=== PATIENT | male | born 1970 | race Hispanic/Latino ===

== ENCOUNTER → 2016-08-13 | Outpatient (CLI) | payer OTHER | LOC: MOB LAB 10:52 | PROVIDERS: ATTEND Nurse Practitioner Family | DX: E29.1 Testicular hypofunction (principal); N52.9 Male erectile dysfunction, unspecified | CPT/HCPCS: 36415; 84403 ==

== ENCOUNTER → 2016-08-28 | Outpatient (CLI) | payer OTHER ==
--- NOTE | 2016-08-28 10:17 | DI ---
US SCROTUM,08/28/2016 9:07 AM: Clinical History: Lump in the scrotum. Previous Exam: None at this facility. Findings: Multiple grayscale and color Doppler sonographic images are obtained through the scrotum, and demonst rate a small right hydrocele. There is also a small left hydrocele. There is normal, homogeneous test icular echotexture. There is normal venous and arterial Doppler flow. There is no intratesticular mas s. There is no scrotal thickening. Impression: Small bilateral hydroceles otherwise unremarkable.
== END ==
LOC: US 09:03
PROVIDERS: ATTEND Nurse Practitioner Family
DX: N50.9 Disorder of male genital organs, unspecified (principal); N43.3 Hydrocele, unspecified
CPT/HCPCS: 76870

== ENCOUNTER → 2016-09-09 | Outpatient (CLI) | payer OTHER ==
--- NOTE | 2016-09-09 11:18 | DI ---
XR TIB/FIB 2VW,09/09/2016 9:54 AM: Clinical History: Left fibular fracture Previous Exam: May 09, 2010 Findings: AP and lateral views of the left tibia and fibula are obtained, and demonstrate a healing left mid fi bular fracture. The surrounding soft tissues are unremarkable. Impression: Healing left mid fibular fracture.
== END ==
LOC: ORTHO 10:03
PROVIDERS: ATTEND Orthopaedic Surgery
DX: M25.572 Pain in left ankle and joints of left foot (principal); S82.492D Other fracture of shaft of left fibula, subsequent encounter for closed fracture with routine healing
CPT/HCPCS: 73590

== ENCOUNTER → 2016-09-09 | Outpatient (CLI) | payer OTHER ==
--- NOTE | 2016-09-09 10:50 | DI ---
XR HAND MIN 3VW,09/09/2016 9:43 AM: Clinical History: Right hand pain Previous Exam: None at this facility. Findings: 3 views of the right hand are obtained, and demonstrate anatomic alignment without fractures. The brenden rounding soft tissues are unremarkable. Impression: Normal right hand.
--- NOTE | 2016-09-09 11:18 | DI ---
XR ELBOW COMPLETE MIN 3VW,09/09/2016 9:43 AM: Clinical History: Left elbow pain Previous Exam: None at this facility. Findings: 3 views of left elbow are obtained, and demonstrate a small avulsion fracture involving the medial rankin rface of the ulna near the medial ulnar groove. There is no evidence of elbow joint effusion. Impression: Avulsion fracture involving the medial rim of the ulnar notch
== END ==
LOC: ORTHO 10:01
PROVIDERS: ATTEND Orthopaedic Surgery
DX: M25.522 Pain in left elbow (principal); M77.12 Lateral epicondylitis, left elbow; S52.692A Other fracture of lower end of left ulna, initial encounter for closed fracture; M79.641 Pain in right hand; M67.441 Ganglion, right hand
CPT/HCPCS: 73080; 73130

== ENCOUNTER 2016-10-29 17:46 | Inpatient (IN) | payer OTHER ==
[2016-10-29] MEDS ORDERED: NORMAL SALINE 10 ML SYRINGE FLUSH IVP PRN ×3 (18:11→20:40)
[2016-10-29] MEDS ORDERED: Sodium Chloride 0.9% 1,000 ML PRIMARY IV ONE (18:11)
[2016-10-29 18:18] LABS: BASOPHILS # (AUTO) 0.01 10*3/UL; BASOPHILS % (AUTO) 0.1 % (0-1); EOSINOPHILS # (AUTO) 0.21 10*3/UL; EOSINOPHILS % (AUTO) 1.7 % (0-8); HEMOGLOBIN 15.3 g/dL (14.0-18.0); LYMPHOCYTES # (AUTO) 1.45 10*3/uL; MEAN CORPUSCULAR HEMOGLOBIN 31.5 PG (27-31); MEAN CORPUSCULAR VOLUME 92.8 FL (80-90); MEAN PLATELET VOLUME 9.3 FL (7.4-12.2); MONOCYTES # (AUTO) 1.04 10*3/UL (0.3-0.8); MONOCYTES % (AUTO) 8.4 % (5-15); NEUTROPHILS # (AUTO) 9.58 10*3/UL; NEUTROPHILS % (AUTO) 77.7 % (50-80); RED BLOOD COUNT 4.85 10^6/uL (4.70-6.10)
[2016-10-29 18:25] LABS: PLATELET MORPHOLOGY COMMENT NORMAL MORPHOLOGY (NORM); RBC MORPHOLOGY COMMENT NORMAL MORPHOLOGY (NORM); WBC MORPHOLOGY COMMENT NORMAL MORPHOLOGY (NORM)
[2016-10-29 18:26] LABS: BLOOD UREA NITROGEN 15 mg/dL (7-22); BUN/CREATININE RATIO 16.66 (6-20); CALCIUM 9.1 mg/dL (8.7-10.7); EST GLOMERULAR FILTRATION > 60 (>60 ml/min/1.73m(2)); SERUM ALBUMIN 4.1 g/dL (3.5-4.8)
[2016-10-29 18:27] LABS: LIPASE 33 IU/L (23-300)
[2016-10-29 18:31] LABS: BILIRUBIN,URINE NEGATIVE (NEG); COLOR,URINE YELLOW; GLUCOSE, URINE (UA) NEGATIVE (NEG); NITRATE,URINE NEGATIVE (NEG); OCCULT BLOOD,URINE NEGATIVE (NEG); PROTEIN,URINE NEGATIVE (NEG)
[2016-10-29] MEDS ORDERED: MORPHINE SULFATE 4 MG/1 ML IVP ONE (18:49)
--- NOTE | 2016-10-29 19:03 | DI ---
CT ABDOMEN SCAN WITH IV CONTRAST, 10/29/2016 6:11 PM : Clinical History: Abdominal pain. Previous Exam: None at this facility. Scans are performed from the lower lung bases through the liver and kidneys with IV contrast. 75 ml o f Isovue 300 was injected IV. The lung bases are clear. The liver is normal. The gallbladder is grossly normal. There is no abnorma lity of the spleen, pancreas, and adrenal glands. Both kidneys are normal in size, shape, position an d contour. There is no hydronephrosis or hydroureter. No renal or ureteral calculi are present. There are no abnormal retrocrural or periaortic nodes. No ascites is present. READING: Normal CT abdomen scan. CT PELVIS SCAN WITH IV CONTRAST, 10/29/2016 6:11 PM: Clinical History: See above. Previous Exam: None at this facility. Scans are performed from just superior to the umbilicus to the symphysis pubis with IV contrast. This is the same bolus of contrast used for the CT scans of the abdomen. Scans through the lower abdomen and pelvis show no masses or abnormal fluid collections. There is no adenopathy. The appendix is normal. The small bowel, terminal ileum, and ileocecal valve are normal. Beginning at the junction between the descending colon and proximal sigmoid colon and extending to th e mid sigmoid colon are periserosal inflammatory/infiltrative change along with thickening of the bow el mucosa. There are diverticula present and there is some extraluminal bowel gas present indicating perforation of a diverticulum. A small amount of ascites is present in proximity to the inflamed segm ent of sigmoid colon. The rectosigmoid colon and rectum are normal. There are no hernias. READIN. There is acute diverticulitis in the proximal half of the sigmoid colon with a collection of extr aluminal bowel gas and fluid consistent with a very small abscess probably no more than 2-3 cm in dameon meter secondary to perforation of a diverticulum. There is also a small amount of ascites in proximit y to the focus of acute inflammation. 2. The remainder of the examination is normal.
[2016-10-29 19:04] LABS: CLARITY,URINE CLEAR (CLEAR); URINE SAMPLE TYPE CLEAN CATCH URINE
[2016-10-29] MEDS ORDERED: Ertapenem Inj 1 GM in Sodium Chloride 0.9% 100 ML IV ONE (19:19)
[2016-10-29] MEDS ORDERED: LIDOCAINE W/ SODIUM BICARB 0.5 ML SYR SUBD PRN (20:06)
[2016-10-29] MEDS ORDERED: MORPHINE SULFATE 2 MG/1 ML IVP PRN (20:06)
[2016-10-29] MEDS ORDERED: ONDANSETRON 4 MG/2 ML VIAL IVP PRN ×2 (20:06→20:40)
[2016-10-29] MEDS ORDERED: HYDROmorphone 2 MG/1 ML ONE (20:08)
[2016-10-29] MEDS ORDERED: 1/2NS + 20mEq KCL 1,000 ML PRIMARY IV SCH (20:15)
[2016-10-29] MEDS: HYDROmorphone 2 MG/1 ML IVP ONE ×2 (20:15→23:04)
--- NOTE | 2016-10-29 20:19 | PDOC ---
History and Physical - History of Present Illness Date and Time of Service: 10/29/2016 at 2010 Chief Complaint: Patient's been having abdominal pain History of Present Illness: 45-year-old gentleman is had a four-day history of a abdominal pain. He states , started as generalized abdominal pain is shifted to the left lower quadrant and pelvis. He states is having fevers at home but had not recorded 1 in the emergency department. Patient's been taking Advil no relief. His last normal bowel movement was today. No hematochezia hematemesis or melena. No nausea vomiting. He's never had pain quite like this before. Patient has an elevated white count 12.[address] scan shows acute inflammatory condition of the sigmoid colon. Is small amount of free air around the sigmoid colon with some fluid collection. May represent a small abscess 2-3 cm. Past Medical History Medical History: Hypercholesterolemia Tobacco Use: Never Smoker Substance Use Type: None Medication / Allergies Home Medications: Home Medications Medication Instructions Recorded Confirmed Type Multivitamin [Multi Vitamin Daily] 1 each PO QD tab 08/30/14 10/29/16 History [place]-3 Fatty Acids [Fish Oil] 1 cap PO QD cap 08/30/14 10/29/16 History Epinephrine [Epipen 2-Sandor] 0.3 ml IM ONCE #1 packet 08/27/16 10/29/16 Clinic Pravastatin Sodium [Pravachol] 1 tab PO DAILY #30 tab 08/27/16 10/29/16 Clinic Allergies/Adverse Reactions: Allergies Allergy/AdvReac Type Severity Reaction Status Date / Time Lactase [From Dairy Ease] Allergy Severe ANAPHLAXIS Verified 10/29/16 17:54 black walnut Allergy Unknown unknown Verified 10/29/16 17:54 rosuvastatin calcium AdvReac Intermediate NOT Verified 10/29/16 17:54 [From Crestor] APPLICABLE Review of Systems - Review of Systems -: Patient has visual hearing problems. No thyroid disease. He had high blood pressure with diet controlled. He has hypercholesterolemia. He says is a severe milk allergy. He has no nausea vomiting. No gastroesophageal reflux disease. Up until today had no problems with his bowels. He is still passing gas and had a bowel movement this morning. No endocrine problems. No coronary artery disease. No emphysema or asthma COPD. No problems the skin. No orthopedic problems. No psychologic problems. Otherwise unremarkable Exam - Vitals Vital Signs: Vital Signs Temperature 99.2 F Temperature Source Temporal Artery Scan Pulse Rate [Pulse Oximeter] 104 Respiratory Rate 17 Blood Pressure [Right Arm] 156/99 Pulse Ox 95 Oxygen Delivery Method Room Air Height 5 ft 7.5 in Weight 97.522 kg - General General Appearance: POSITIVE: No Acute Distress, Cooperative - Eye Eye Exam: POSITIVE: PERRL, EOMI - Neck Neck Exam: POSITIVE: Normal Inspection, Full ROM - Respiratory Respiratory Exam: POSITIVE: Clear to Auscultation - Bilaterally, Breathing Non Labored, Normal To Percussion - Cardiovascular Cardiovascular Exam: POSITIVE: RRR, No Murmur, No JVD - GI/Abdominal GI/Abdominal Exam: POSITIVE: Normal Bowel Sounds, Non Distended, Soft, No Hepatomegaly, No Splenomegaly Additional GI/Abdominal Exam Details: Patient has some left lower quadrant tenderness - Rectal Rectal Exam: POSITIVE: Deferred - External Exam: POSITIVE: Deferred - Extremities Extremities Exam: POSITIVE: Full ROM, No Clubbing Present, No Edema Present - Neurological Neurological Exam: POSITIVE: Alert, Oriented x 3, CN II-XII Intact Results - Labs CBC and BMP: 10/29/16 18:15 10/29/16 18:15 Labs - Last 24 Hours: Laboratory Results 10/29/16 Range/Units 18:15 WBC 12.33 H (4.8-10.8) 10^3/uL RBC 4.85 (4.70-6.10) 10^6/uL Hgb 15.3 (14.0-18.0) g/dL Hct 45.0 (42.0-52.0) % MCV 92.8 H (80-90) FL MCH 31.5 H (27-31) PG MCHC 34.0 (33-37) g/dL RDW Std Deviation 45.5 (39-50) fL RDW Coeff of Alee 13.7 (11.5-14.5) % Plt Count 212 (140-350) 10*3/uL MPV 9.3 (7.4-12.2) FL Immature Gran % (Auto) 0.3 (0-5) % Neut % (Auto) 77.7 (50-80) % Lymph % (Auto) 11.8 (10-50) % [place] % (Auto) 8.4 (5-15) % Eos % (Auto) 1.7 (0-8) % Baso % (Auto) 0.1 (0-1) % Immature Gran # (Auto) 0.04 10*3/UL Neut # (Auto) 9.58 10*3/UL Lymph # (Auto) 1.45 10*3/uL [place] # (Auto) 1.04 H (0.3-0.8) 10*3/UL Eos # (Auto) 0.21 10*3/UL Baso # (Auto) 0.01 10*3/UL WBC Morphology Comment Normal morphology (NORM) Plt Morphology Comment Normal morphology (NORM) RBC Morph Comment Normal morphology (NORM) Sodium 139 (135-145) meq/L Potassium 4.1 (3.8-5.2) meq/L Chloride 103 (98-112) meq/L Carbon Dioxide 24 (23-33) meq/L Anion Gap 12 (5-20) BUN 15 (7-22) mg/dL Creatinine 0.9 (0.70-1.50) mg/dL Estimated GFR > 60 (>60 ml/min/1.73m(2)) BUN/Creatinine Ratio 16.66 (6-20) Glucose 90 (78-110) mg/dL Calculated Osmolality 288.0 (267-292) mOsm/kg Calcium 9.1 (8.7-10.7) mg/dL Total Bilirubin 1.4 H (0.3-1.2) mg/dL AST 30 (21-57) IU/L ALT 34 (21-72) IU/L Alkaline Phosphatase 64 (38-126) IU/L Total Protein 7.7 (6.1-8.0) g/dL Albumin 4.1 (3.5-4.8) g/dL Globulin 3.6 (2.50-4.10) g/dL Albumin/Globulin Ratio 1.10 L (1.3-2.0) mg/g Amylase 47 (30-110) U/L Lipase 33 (23-300) IU/L Ur Collection Type Clean catch urine Urine Color Yellow Urine Clarity Clear (CLEAR) Urine pH 7.0 (5.0-8.5) Ur Specific [place] 1.020 (1.005-1.030) Urine Protein Negative (NEG) mg/dl Urine Glucose (UA) Negative (NEG) mg/dL Urine Ketones 80 (NEG) Urine Occult Blood Negative (NEG) Urine Nitrate Negative (NEG) Urine Bilirubin Negative (NEG) Urine Urobilinogen 1.0 (0.2) EU/dL Ur Leukocyte Esterase Negative (NEG) Ur Culture Indicated? Culture not set Assessment and Plan - Patient Problems (1) Diverticulitis of intestine with abscess Current Visit: Yes Status: Acute - Assessment / Plan Additional Assessment/Plan Details: At the present time the patient does not have a surgical abdomen. I think he can be managed with IV Invanz which is oriented been started in emergency department. He remained nothing by mouth tonight and reevaluate in the morning. With a small abscess there is a good chance it will resolve with IV antibiotic therapy. Alternatively, Shawna for surgery have a sigmoid colon resection and colostomy. Patient understands the demonstrating the 2 managements. He understands that he Worsening of his condition with conservative therapy. He also can have the abscess get bigger which would then require percutaneous drainage. He is in agreement with doing IV antibiotic therapy at this time.
[2016-10-29] MEDS ORDERED: Famotidine Inj 20 MG in Normal Saline Flush 10 ML IVP SCH (21:00)
[2016-10-29] MEDS: MORPHINE SULFATE 2 MG/1 ML IVP PRN ×2 (21:13→22:45)
[2016-10-29] MEDS: Famotidine Inj 20 MG in Normal Saline Flush 10 ML IVP SCH (21:14)
[2016-10-29] MEDS: 1/2NS + 20mEq KCL 1,000 ML PRIMARY IV SCH (21:15)
--- NOTE | 2016-10-29 21:30 | PDOC ---
Abdomen/Flank HPI - General Chief Complaint: Abdomen Pain Stated Complaint: ABD PAIN, FEVER, TROUBLE URINATING Date Seen by Provider: 10/29/16 Time Seen by Provider: 17:58 Source: POSITIVE: Patient, Spouse Exam Limitations: POSITIVE: No limitations Nurse's Notes Reviewed & Considered: Yes - History of Present Illness Initial Comments: The patient is a 45-year-old male. He presents ambulatory to the emergency room accompanied by his . He states that for the past 4-5 days he has had lower abdominal pain, left greater than right. He also states that on the onset of his symptoms he had a fever and some chills. He has not had any vomiting or diarrhea. He states he has passed some "mucus"per rectum. He's not had any history of abdominal surgery. He last ate around 9 AM this morning and had a "liquid breakfast." He has not been hungry. Body Location Affected: REPORTS: Abdomen Timing: REPORTS: Gradual, Getting Worse Duration: >24 hours (4-5 days) Severity: Moderate Quality: REPORTS: "Pain" Abdominal Pain Onset Location: REPORTS: RLQ, LLQ, Suprapubic Abdominal Pain Radiation: REPORTS: No radiation Context: REPORTS: None Modifying Factors: improves with: Palpation Associated Symptoms: REPORTS: Fever, Nausea Similar Symptoms Previously: No Recent Care Received: REPORTS: Denies Any Prior Injuries Related to Current Complaint?: No - Patient Home Medications Home Medications: Home Medications Multivitamin [Multi Vitamin Daily] 1 each PO QD tab 08/30/14 [place]-3 Fatty Acids [Fish Oil] 1 cap PO QD cap 08/30/14 Epinephrine [Epipen 2-Sandor] 0.3 ml IM ONCE #1 packet 08/27/16 Pravastatin Sodium [Pravachol] 1 tab PO DAILY #30 tab 08/27/16 - Patient Allergies Allergies/Adverse Reactions: Allergies Allergy/AdvReac Type Severity Reaction Status Date / Time Lactase [From Dairy Ease] Allergy Severe ANAPHLAXIS Verified 10/29/16 17:54 black walnut Allergy Unknown unknown Verified 10/29/16 17:54 rosuvastatin calcium AdvReac Intermediate NOT Verified 10/29/16 17:54 [From Crestor] APPLICABLE Past Medical History - heen HEENT History: Denies History Cardiovascular History: Hypertension, Hyperlipidemia Respiratory History: Denies History Gastrointestinal History: Denies History Genitourinary History: Denies History Endocrine History: Denies History Musculoskeletal History: Denies History Prosthesis or Implant: No Neurological History: Denies History Blood Disorders: Denies History Psychiatric History: Denies History History of Sexually Transmitted Diseases: No Male Reproductive History: Denies History Cancer History: Denies History In Past Year Been Physically Harmed or Verbally Threatened: No History of MDRO: No History of Other Communicable Diseases: No Tobacco Use: Never Smoker Alcohol Use: Occasionally Substance Use Type: None Previous Surgical History: Yes Type / Date of Surgery: TONSILLECTOMY, ADENOIDECTOMY, RIGHT KNEE LATERAL RELEASE Anesthesia Reactions: No Malignant Hyperthermia: No Family History of Malignant Hyperthermia: No Significant Family History: No pertinent family hx Past Medical History Reviewed: Reviewed - No Changes ROS - Limitations ROS Limitations: No Limitations Constitution: REPORTS: Chills (At onset of illness), Fever Cardiovascular: REPORTS: Denies Cardiac Symptoms Respiratory: REPORTS: Denies Resp Symptoms Neurological: REPORTS: Denies Neuro Symptoms Gastrointestinal: REPORTS: Abdominal Pain, Nausea Endocrine: REPORTS: Denies Symptoms Musculoskeletal: REPORTS: Denies MS Symptoms Genitourinary: REPORTS: Denies Symptoms Eyes: REPORTS: Denies Symptoms ENT: REPORTS: Denies Symptoms Skin: REPORTS: Denies Skin Symptoms Lympathic: REPORTS: Denies Lympathic Symptoms Immunologic: POSITIVE: Denies Symptoms Psychiatric: POSITIVE: Denies Psych Symptoms Abdominal/Flank Pain PE - General Appearance General Appearance: POSITIVE: Alert, Cooperative, No Acute Distress, No Evidence of Trauma - HEENT HEENT: POSITIVE: Head Inspection Nml, Eyes Inspection Nml, Ears Inspection Nml, Nose Inspection Nml, Oral/Dental Inspect. Nml, Pharynx Inspect. Nml, PERRL, EOMI - Neck Neck: POSITIVE: Normal Inspection, No Apparent Injury - Respiratory Respiratory: POSITIVE: No Respiratory Distress, Breath Sounds Normal, Chest Non- Tender - Cardiovascular Cardiovascular: POSITIVE: Regular Rate and Rhythm, Heart Sounds Normal, Equal Pulses, Strong Pulses Peripheral Pulses: Radial (R): 2+, Radial (L): 2+ - Abdomen Abdomen: Soft: (All Quadrants), Denies Tenderness: (RUQ), (LUQ), No Splenomegaly : (All Quadrants), No Hepatomegaly: (All Quadrants), No Guarding: (All Quadrants ), No Rebound: (All Quadrants), No Palpable Pulse: (All Quadrants), No Palpabale Mass: (All Quadrants), No Distention: (All Quadrants), No Rigidity: ( All Quadrants), Tenderness Noted: (RLQ), (LLQ) Additional Abdominal Details: Abdominal examination shows bowel sounds to be depressed, but present. Patient has pain on palpation over the left lower quadrant without masses, organomegaly or rebound. Mild discomfort on direct palpation over the right lower quadrant. - Back Back: POSITIVE: Normal Inspection - Skin Skin: POSITIVE: Intact, Normal For Race, Warm, Dry, No Rash - Extremities Extremity: Non-Tender: (All Extremities), Normal ROM: (All Extremities), Normal Inspection: (All Extremities) - Neurological Neurological: POSITIVE: Oriented X3, diversity manager Normal As Tested, Motor Normal, Sensation Normal, 5, 6 - Psychological Psychiatric: POSITIVE: Affect Appropriate, Mood Appropriate Images - Complete Complete: 1 - Pain on palpation Abdomen Progress - Results Reviewed by me Xrays/CTs/US Reviewed by me: Yes Discussed with Radiologist: Yes Radiology Findings: CT scan abdomen and pelvis shows diverticulitis of the descending and sigmoid colon. There is a perforation and a 2-3 cm diverticular abscess. Lab Results Reviewed: Yes Lab Results:: Laboratory Results 10/29/16 Range/Units 18:15 WBC 12.33 H (4.8-10.8) 10^3/uL RBC 4.85 (4.70-6.10) 10^6/uL Hgb 15.3 (14.0-18.0) g/dL Hct 45.0 (42.0-52.0) % MCV 92.8 H (80-90) FL MCH 31.5 H (27-31) PG MCHC 34.0 (33-37) g/dL RDW Std Deviation 45.5 (39-50) fL RDW Coeff of [place]lee 13.7 (11.5-14.5) % Plt Count 212 (140-350) 10*3/uL MPV 9.3 (7.4-12.2) FL Immature Gran % (Auto) 0.3 (0-5) % Neut % (Auto) 77.7 (50-80) % Lymph % (Auto) 11.8 (10-50) % [place] % (Auto) 8.4 (5-15) % Eos % (Auto) 1.7 (0-8) % Baso % (Auto) 0.1 (0-1) % Immature Gran # (Auto) 0.04 10*3/UL Neut # (Auto) 9.58 10*3/UL Lymph # (Auto) 1.45 10*3/uL [place] # (Auto) 1.04 H (0.3-0.8) 10*3/UL Eos # (Auto) 0.21 10*3/UL Baso # (Auto) 0.01 10*3/UL WBC Morphology Comment Normal morphology (NORM) Plt Morphology Comment Normal morphology (NORM) RBC Morph Comment Normal morphology (NORM) Sodium 139 (135-145) meq/L Potassium 4.1 (3.8-5.2) meq/L Chloride 103 (98-112) meq/L Carbon Dioxide 24 (23-33) meq/L Anion Gap 12 (5-20) BUN 15 (7-22) mg/dL Creatinine 0.9 (0.70-1.50) mg/dL Estimated GFR > 60 (>60 ml/min/1.73m(2)) BUN/Creatinine Ratio 16.66 (6-20) Glucose 90 (78-110) mg/dL Calculated Osmolality 288.0 (267-292) mOsm/kg Calcium 9.1 (8.7-10.7) mg/dL Total Bilirubin 1.4 H (0.3-1.2) mg/dL AST 30 (21-57) IU/L ALT 34 (21-72) IU/L Alkaline Phosphatase 64 (38-126) IU/L Total Protein 7.7 (6.1-8.0) g/dL Albumin 4.1 (3.5-4.8) g/dL Globulin 3.6 (2.50-4.10) g/dL Albumin/Globulin Ratio 1.10 L (1.3-2.0) mg/g Amylase 47 (30-110) U/L Lipase 33 (23-300) IU/L Ur Collection Type Clean catch urine Urine Color Yellow Urine Clarity Clear (CLEAR) Urine pH 7.0 (5.0-8.5) Ur Specific [place] 1.020 (1.005-1.030) Urine Protein Negative (NEG) mg/dl Urine Glucose (UA) Negative (NEG) mg/dL Urine Ketones 80 (NEG) Urine Occult Blood Negative (NEG) Urine Nitrate Negative (NEG) Urine Bilirubin Negative (NEG) Urine Urobilinogen 1.0 (0.2) EU/dL Ur Leukocyte Esterase Negative (NEG) Ur Culture Indicated? Culture not set - Patient's Progress Pain Medication Addressed: POSITIVE: Yes (Morphine sulfate 4 mg IV shortly after arrival. Dilaudid 2 mg IV just before admission.) School/Work Release Addressed: POSITIVE: Not Applicable Re-examine Time: 19:00 Re-Examine Comment: Condition unchanged. Diagnosis discussed with patient and his . Dr. Finn, surgeon, notified, who will come to the emergency room to further evaluate and treat. 1 g of Invanz IV ordered. Status: POSITIVE: Unchanged, Re-Examined - Consult Consult (If Yes, Name of Consulting MD & Time Called): Yes (Dr. Noguera, surgeon [id number],) Consulting MD will see pt:: POSITIVE: In ED, [facility] [place] Admit Counseled: POSITIVE: Patient, Family, RE: Lab Results, RE: Radiology Results, RE : DX, RE: Need for F/U Patient Care Time - Estimated PCT Patient Care Time (In Minutes): 45 Vital Signs - Recent Vital Signs Vital Signs: Vital Signs (Last 8 hours) Temp Pulse Resp BP Pulse Ox 10/29/16 20:45 99.1 F 83 18 137/97 93 10/29/16 18:11 99.1 F 107 H 20 137/97 93 10/29/16 18:00 99.2 F 104 H 17 156/99 95 - VS Reviewed Vital Signs Reviewed: Yes Discharge Clinical Impression: Diverticulitis of intestine with abscess, Pneumoperitoneum Discharge Disposition: Admit to Inpatient Condition: Fair Date Decision to Admit to Inpatient: 10/29/16 Time Decision to Admit to Inpatient: 19:00
[2016-10-30] MEDS: MORPHINE SULFATE 2 MG/1 ML IVP PRN ×7 (00:15→21:16)
[2016-10-30 04:53] LABS: BASOPHILS # (AUTO) 0.02 10*3/UL; BASOPHILS % (AUTO) 0.2 % (0-1); EOSINOPHILS # (AUTO) 0.18 10*3/UL; EOSINOPHILS % (AUTO) 1.8 % (0-8); HEMATOCRIT 42.7 % (42.0-52.0); HEMOGLOBIN 14.2 g/dL (14.0-18.0); MEAN CORPUSCULAR HEMOGLOBIN 31.2 PG (27-31); MEAN CORPUSCULAR HGB CONC 33.3 g/dL (33-37); MEAN CORPUSCULAR VOLUME 93.8 FL (80-90); MEAN PLATELET VOLUME 9.6 FL (7.4-12.2); MONOCYTES # (AUTO) 0.94 10*3/UL (0.3-0.8); MONOCYTES % (AUTO) 9.6 % (5-15); RED BLOOD COUNT 4.55 10^6/uL (4.70-6.10)
[2016-10-30 04:58] LABS: PLATELET MORPHOLOGY COMMENT NORMAL MORPHOLOGY (NORM); RBC MORPHOLOGY COMMENT NORMAL MORPHOLOGY (NORM); WBC MORPHOLOGY COMMENT NORMAL MORPHOLOGY (NORM)
[2016-10-30 05:04] LABS: BLOOD UREA NITROGEN 12 mg/dL (7-22); BUN/CREATININE RATIO 13.33 (6-20); CALCIUM 8.5 mg/dL (8.7-10.7); EST GLOMERULAR FILTRATION > 60 (>60 ml/min/1.73m(2))
[2016-10-30] MEDS: 1/2NS + 20mEq KCL 1,000 ML PRIMARY IV SCH ×3 (06:13→22:38)
--- NOTE | 2016-10-30 08:35 | PDOC(PROG) ---
Date and Time of Service: 10/30/2016 at 835 Interval History: Patient states that is actually feeling better. Having less abdominal pain Objective : Data - Labs CBC and BMP: 10/30/16 04:28 10/30/16 04:28 Labs - Last 24 Hours: Laboratory Results 10/30/16 Range/Units 04:28 WBC 9.76 (4.8-10.8) 10^3/uL RBC 4.55 L (4.70-6.10) 10^6/uL Hgb 14.2 (14.0-18.0) g/dL Hct 42.7 (42.0-52.0) % MCV 93.8 H (80-90) FL MCH 31.2 H (27-31) PG MCHC 33.3 (33-37) g/dL RDW Std Deviation 44.9 (39-50) fL RDW Coeff of [place]lee 13.6 (11.5-14.5) % Plt Count 216 (140-350) 10*3/uL MPV 9.6 (7.4-12.2) FL Immature Gran % (Auto) 0.2 (0-5) % Neut % (Auto) 78.0 (50-80) % Lymph % (Auto) 10.2 (10-50) % [place] % (Auto) 9.6 (5-15) % Eos % (Auto) 1.8 (0-8) % Baso % (Auto) 0.2 (0-1) % Immature Gran # (Auto) 0.02 10*3/UL Neut # (Auto) 7.60 10*3/UL Lymph # (Auto) 1.00 10*3/uL [place] # (Auto) 0.94 H (0.3-0.8) 10*3/UL Eos # (Auto) 0.18 10*3/UL Baso # (Auto) 0.02 10*3/UL WBC Morphology Comment Normal morphology (NORM) Plt Morphology Comment Normal morphology (NORM) RBC Morph Comment Normal morphology (NORM) Sodium 138 (135-145) meq/L Potassium 3.8 (3.8-5.2) meq/L Chloride 106 (98-112) meq/L Carbon Dioxide 24 (23-33) meq/L Anion Gap 8 (5-20) BUN 12 (7-22) mg/dL Creatinine 0.9 (0.70-1.50) mg/dL Estimated GFR > 60 (>60 ml/min/1.73m(2)) BUN/Creatinine Ratio 13.33 (6-20) Glucose 92 (78-110) mg/dL Calculated Osmolality 285.0 (267-292) mOsm/kg Calcium 8.5 L (8.7-10.7) mg/dL - Vital Signs Vital Signs and I&O: Vital Signs - Last Taken Temperature 99.6 F 10/30/16 06:45 Pulse Rate 90 10/30/16 06:45 Respiratory Rate 16 10/30/16 06:45 Blood Pressure 132/78 10/30/16 06:45 Pulse Ox 92 10/30/16 06:45 Intake and Output (24hr x 4 totals) 10/28/16 10/29/16 10/30/16 10/31/16 05:59 05:59 05:59 05:59 Intake Total 1084 Output Total 625 Balance -625 1084 Objective : Exam - GI/Abdominal GI/Abdominal Exam: Non Tender, Non Distended, Soft Assessment and Plan - Patient Problems (1) Diverticulitis of intestine with abscess Current Visit: Yes Status: Acute - Assessment / Plan Additional Assessment/Plan Details: At this point the patient is noted dose of antibiotics. We'll start him on a low residual diet
[2016-10-30] MEDS: Famotidine Inj 20 MG in Normal Saline Flush 10 ML IVP SCH ×2 (09:09→21:01)
[2016-10-30] MEDS: HYDROcodone-APAP 7.5 MG-325 MG TABLET PO PRN ×3 (13:50→22:38)
[2016-10-30] MEDS: Ertapenem Inj 1 GM in Sodium Chloride 0.9% 100 ML IV SCH (18:44)
[2016-10-30] MEDS: NORMAL SALINE 10 ML SYRINGE FLUSH IVP PRN (21:02)
[2016-10-31] MEDS: HYDROcodone-APAP 7.5 MG-325 MG TABLET PO PRN ×2 (02:53→06:44)
[2016-10-31 05:09] LABS: BASOPHILS # (AUTO) 0.02 10*3/UL; BASOPHILS % (AUTO) 0.2 % (0-1); EOSINOPHILS # (AUTO) 0.31 10*3/UL; EOSINOPHILS % (AUTO) 3.2 % (0-8); HEMATOCRIT 42.6 % (42.0-52.0); HEMOGLOBIN 14.4 g/dL (14.0-18.0); MEAN CORPUSCULAR HEMOGLOBIN 31.4 PG (27-31); MEAN CORPUSCULAR HGB CONC 33.8 g/dL (33-37); MEAN PLATELET VOLUME 9.7 FL (7.4-12.2); MONOCYTES % (AUTO) 15.6 % (5-15); NEUTROPHILS # (AUTO) 6.08 10*3/UL; NEUTROPHILS % (AUTO) 63.1 % (50-80); RED BLOOD COUNT 4.58 10^6/uL (4.70-6.10)
[2016-10-31 05:13] LABS: PLATELET MORPHOLOGY COMMENT NORMAL MORPHOLOGY (NORM); RBC MORPHOLOGY COMMENT NORMAL MORPHOLOGY (NORM); WBC MORPHOLOGY COMMENT NORMAL MORPHOLOGY (NORM)
[2016-10-31] MEDS: 1/2NS + 20mEq KCL 1,000 ML PRIMARY IV SCH ×2 (07:05→14:41)
[2016-10-31] MEDS: NORMAL SALINE 10 ML SYRINGE FLUSH IVP PRN (08:31)
[2016-10-31] MEDS: Famotidine Inj 20 MG in Normal Saline Flush 10 ML IVP SCH (08:31)
[2016-10-31 11:17] VITALS: RESP 16; TEMP 97.6
[2016-10-31] MEDS: Ertapenem Inj 1 GM in Sodium Chloride 0.9% 100 ML IV SCH (16:05)
--- NOTE | 2016-11-01 07:56 | DCSUMMARY ---
Discharge Summary Admit Date: 10/29/16 Discharge Date: 10/31/16 Admitting Diagnosis: diverticulitis and large intestine with abscess Discharge Diagnosis: Diverticulitis of large intestine with abscess Hospital Course: 45-year-old gentleman who was admitted the hospital with a diverticular perforation abscess. He was started on antibiotic therapy with Invanz. Next morning he was actually feeling better. His white count returned to normal. He was continued on the to have his next dose of Invanz. And then he is able to be discharged to home since he was having no fevers, pain was gone and his white count has been normal on 2 consecutive draws. He will get Invanz as an outpatient on the and . He'll be switched to Augmentin on the . Condition on discharge is improved and stable Exam - Vitals Vital Signs: Vital Signs Temperature 97.6 F Temperature Source Temporal Artery Scan Pulse Rate [Pulse Oximeter] 61 Pulse Rate 101 Respiratory Rate 16 Blood Pressure [Left Arm] 121/78 Blood Pressure [Right Arm] 137/97 Blood Pressure 144/93 Pulse Ox 97 Oxygen Delivery Method Room Air Height 5 ft 7 in Weight 97.522 kg - General General Appearance: POSITIVE: No Acute Distress, Cooperative - Respiratory Respiratory Exam: POSITIVE: Clear to Auscultation - Bilaterally - Cardiovascular Cardiovascular Exam: POSITIVE: RRR - GI/Abdominal GI/Abdominal Exam: POSITIVE: Normal Bowel Sounds, Non Tender, Non Distended, Soft Patient Problems - Patient Problem List (1) Diverticulitis of intestine with abscess Status: Acute
== END 2016-10-31 16:50 | disposition home or self-care (01) | DRG 392 ==
LOC: ER 17:46 → MED/SURG 20:06
PROVIDERS: ADMIT Surgery; ATTEND Surgery
DX: K57.20 Diverticulitis of large intestine with perforation and abscess without bleeding (principal)
CPT/HCPCS: 36415; 74177; 80048; 80053; 81003; 82150; 83690; 85025; 94761; 96374; 99285; J1170; J1335; J2270; J7030; J7050

== ENCOUNTER → 2016-12-12 | Outpatient (CLI) | payer OTHER | LOC: MOB LAB 15:44 | PROVIDERS: ATTEND Nurse Practitioner Family | DX: E29.1 Testicular hypofunction (principal); N52.9 Male erectile dysfunction, unspecified | CPT/HCPCS: 36415; 84403 ==